=== PATIENT | male | born 1960 | race Two or more races ===

== ENCOUNTER 2016-07-01 16:41 | Emergency (ER) | payer SELFPAY ==
[~2016-07-01] VITALS: Ht 185.4 cm; Wt 90.7 kg
[~2016-07-01 16:41] MED LIST: MULTIVITAMINS1 EAC8 ORAL; NKM; PEPCID20 MG ORAL; PRILOSEC10 M1 ORAL; TYLENOL325 MG ORAL
[2016-07-01 16:44] VITALS: BP 126/63
[2016-07-01] MEDS ORDERED: NS 550ML IV ONE (17:17)
[2016-07-01] MEDS ORDERED: Ketorolac 60mg Inj IM ONE (17:30)
--- NOTE | 2016-07-01 18:27 | Emergency Room Report ---
History of Present Illness General Chief Complaint: General Complaint Source: EMS Present Illness HPI 55-year-old male presents emergency department complaining of left-sided chest pain 9/10 in severity x one day in addition to exacerbation of his chronic back pain and bilateral lower extremity paresthesias and shooting electrical type pain rated at 7/10 in severity times one day. Patient reports history of smoking and alcohol use denies drug use. Patient denies nausea, vomiting, fevers, chills. Patient denies swelling in the lower extremities. Denies new trauma or fall. Patient reports chest pain as 10 out of 10 sharp stabbing in nature.Denies numbness tingling or loss of sensation or gross motor movements of the extremities, incontinence of bowel or bladder. Denies Palpitations, LOC , AMS, dizziness, Changes in Vision, Sensation, paresthesias, or a sudden severe headache. Allergies: Coded Allergies: No Known Allergies (Unverified , 02/23/16) Patient History Past Medical History: see triage record Past Surgical History: none Pertinent Family History: none Immunizations: UTD Reviewed Nursing Documentation: PMH: Agreed, PSxH: Agreed Nursing Documentation-PMH Hx Cardiac Problems: Yes - Stent (2015) Hx Gastrointestinal Problems: Yes - liver problem, alchol and substance abuse History Of Psychiatric Problem: Yes Hx Neurological Problems: Yes - chronic pain Review of Systems All Other Systems: negative except mentioned in HPI Physical Exam Vital Signs Date Time Temp Pulse Resp B/P Pulse Ox O2 Delivery O2 Flow Rate FiO2 07/01/16 16:37 97.3 96 18 126/63 100 Room Air Sp02 EP Interpretation: reviewed, normal General Appearance: no apparent distress, alert, GCS 15, non-toxic Head: normocephalic, atraumatic Eyes: bilateral eye PERRL, bilateral eye normal inspection ENT: hearing grossly normal, normal pharynx, no angioedema, normal voice Neck: full range of motion, supple/symm/no masses Respiratory: chest non-tender, lungs clear, normal breath sounds, no rhonchi, no respiratory distress, no retraction, no accessory muscle use, no wheezing, speaking full sentences Cardiovascular #1: normal peripheral pulses, regular rate, rhythm, no edema, no murmur, normal capillary refill Musculoskeletal: back normal, gait/station normal, normal range of motion, no calf tenderness, other - Bilateral paraspinal TTP int he L-SPine, no midline spinous process TTP, no obvious deformity or step off noted. Neurologic: alert, oriented x3, responsive, motor strength/tone normal, sensory intact, cerebellar normal, normal gait, speech normal Psychiatric: judgement/insight normal, memory normal, mood/affect normal, no suicidal/homicidal ideation Reflexes: 3+ knee (R), 3+ knee (L) Skin: normal color, no rash, warm/dry, well hydrated Lymphatic: no adenopathy Medical Decision Making PA Attestation Dr. Webb is my supervising Physician whom patient management has been discussed with. Diagnostic Impression: Primary Impression: Chest pain Qualified Codes: R07.9 - Chest pain, unspecified Additional Impression: Chronic low back pain with bilateral sciatica Qualified Codes: M54.42 - Lumbago with sciatica, left side; M54.41 - Lumbago with sciatica, right side; G89.29 - Other chronic pain ER Course Pt. presents to the ED c/o CP, and exacerbation of chronic back pain and bilateral LE paresthesia x 1 day. Ddx considered but are not limited to SC, pneumonia, contusion, costochondritis , PE, ACS, Shoulder strain, Chest wall contusion. aortic dissection. Vital signs: are WNL, pt. is afebrile H&PE are most consistent with non-specific CP, and exacerbation of chronic low back pain no new injury. ORDERS: - EK BPM NSR no acute ST changes , pt. not given ASA in ED, -Interpreted by Dr. Webb. -CK-MB: WNL -Troponins: WNL ED INTERVENTIONS: -60mg Toradol IM -500cc NS DISCHARGE: At this time pt. is stable for d/c to home. Will provide printed patient care instructions, and any necessary prescriptions. Care plan and follow up instructions have been discussed with the patient prior to discharge. Labs Test 07/01/16 18:30 Total Creatine Kinase 131 U/L (38-174) Creatine Kinase MB 2.5 ng/mL (< 6.7) Creatine Kinase MB Relative Index 1.9 Troponin I < 0.30 ng/mL (<=0.30) EKG Diagnostic Results Rate: normal - 93 BPM Rhythm: NSR ST Segments: no acute changes ASA given to the pt in ED: No PA Scribe Text Interpreted by Dr. Webb. Last Vital Signs Date Time Temp Pulse Resp B/P Pulse Ox O2 Delivery O2 Flow Rate FiO2 07/01/16 16:44 97.3 96 18 126/63 100 Room Air Disposition: HOME, SELF-CARE Condition: Stable Scripts Ibuprofen* (MOTRIN*) 600 Mg Tablet 600 MG ORAL Q8H Y for For Pain, #30 TAB 0 Refills Prov: Luzmaria Petersen 07/01/16 Referrals: NOT CHOSEN IPA/MD,REFERRING (PCP) Patient Instructions: Nonspecific Chest Pain, [id number], Paresthesia, Easy- to-Read Additional Instructions: Take medications as directed. Follow up with PCP in 3-5 days Follow up with Neurologist for chronic lower leg numbness Return sooner to ED if new symptoms occur, or current symptoms become worse. Luzmaria Petersen Jul 01, 2016 18:27
[2016-07-01 19:29] LABS: TROPONIN I < 0.30 ng/mL (<=0.30)
[2016-07-01 19:38] LABS: CKMB 2.5 ng/mL (< 6.7)
[2016-07-01] MEDS ORDERED: IBUPROFEN600 MG ORAL (19:43)
[2016-07-01 20:00] VITALS: BP 124/70
--- NOTE | 2016-07-04 08:30 | Cardiology Report ---
APPROVED REPORT EKG Measurement Heart [id number] Normal sinus rhythm Normal ECG
== END 2016-07-01 20:00 | disposition home or self-care (01) ==
LOC: EDBD 16:41 → EMR 17:16
DX: R07.9 Chest pain, unspecified (principal); M54.42 Lumbago with sciatica, left side; M54.41 Lumbago with sciatica, right side; G89.29 Other chronic pain
CPT/HCPCS: 36415; 82550; 82553; 84484; 93005; 96372; 96374; 99284; J7040